=== PATIENT | female | born 1925 | race Caucasian/White ===

== ENCOUNTER 2017-01-13 06:56 | Day surgery (SDC) | payer OTHER ==
[~2017-01-13] VITALS: Ht 157.5 cm; Wt 80.0 kg
[2017-01-13 07:21] VITALS: BP 195/86; PULSE 89; RESP 20; TEMP 98.1; O2SAT 91
[2017-01-13 08:17] LABS: BASOPHIL # 0.1 TH/MM3 (0-0.2); BASOPHIL % 1.2 % (0.0-2.0); EOSINOPHIL # 0.4 TH/MM3 (0-0.4); EOSINOPHIL % 3.6 % (0.0-4.0); HEMATOCRIT 38.8 % (35.0-46.0); HEMO FLAGS DIFF FINAL; LYMPH % 37.6 % (9.0-44.0); LYMPHOCYTE # 4.5 TH/MM3 (1.0-4.8); MEAN CELL VOLUME 86.8 FL (80.0-100.0); MEAN CORPUSCULAR HEMOGLOBIN 29.5 PG (27.0-34.0); MONO % 7.5 % (0.0-8.0); NEUT % 50.1 % (16.0-70.0); PLATELET COUNT 222 TH/MM3 (150-450); RED BLOOD COUNT 4.47 MIL/MM3 (4.00-5.30); RED CELL DISTRIBUTION WIDTH 14.2 % (11.6-17.2)
[2017-01-13] MEDS ORDERED: CARV6.25 PO (08:18)
[2017-01-13] MEDS ORDERED: PLAV75TA29 PO (08:18)
[2017-01-13] MEDS ORDERED: ERGO2000 PO (08:18)
[2017-01-13] MEDS ORDERED: NITR1SUB3 SL (08:18)
[2017-01-13] MEDS ORDERED: BUME1TAB PO (08:18)
[2017-01-13] MEDS ORDERED: INSU1INJ5 SQ (08:18)
[2017-01-13] MEDS ORDERED: POTA10CA PO (08:18)
[2017-01-13] MEDS ORDERED: NIFE60TA58 PO (08:18)
[2017-01-13] MEDS ORDERED: METF500T PO (08:18)
[2017-01-13] MEDS ORDERED: OMEP20TA PO (08:18)
[2017-01-13] MEDS ORDERED: ATOR10TA15 PO (08:18)
[2017-01-13] MEDS ORDERED: LISI40TA PO (08:18)
[2017-01-13] MEDS ORDERED: MIRTA15 PO (08:18)
[2017-01-13] MEDS ORDERED: LATA0.002 EACH EYE (08:18)
[2017-01-13] MEDS ORDERED: ISOS60TA PO (08:18)
[2017-01-13] MEDS ORDERED: ASPI-147 PO (08:18)
[2017-01-13 08:27] LABS: PROTHROMBIN TIME - PATIENT 10.9 SEC (9.8-11.6)
[2017-01-13 08:28] LABS: APTT (PATIENT) 23.3 SEC (24.3-30.1)
[2017-01-13] MEDS ORDERED: LACTATED RINGER'S 1000 ML IV SCH (08:30)
[2017-01-13] MEDS ORDERED: SODIUM CHLORID 0.9% 500 ML IV SCH (08:30)
[2017-01-13] MEDS ORDERED: INSULIN HUMAN REGULAR 1,000 UNITS/10 ML VIAL SQ PRN (08:30)
[2017-01-13] MEDS ORDERED: ceFAZolin 2 GM PREMIX 50 ML IV SCH (08:30)
[2017-01-13] MEDS ORDERED: METOPROLOL TARTRATE 25 MG TAB PO PRN (08:30)
[2017-01-13] MEDS ORDERED: SODIUM CHLOR 0.9% 1000 ML INJ 1,000 ML IV SCH (08:30)
--- NOTE | 2017-01-13 11:53 | RADRPT ---
EXAM DATE/TIME: 01/13/2017 08:21 [place] COMPARISON : No previous studies available for comparison. INDICATIONS : The patient presented for T12 kyphoplasty. HISTORY OF PRESENT ILLNESS: The patient was accompanied by her family. The patient reportedly fell in August of 2016 and develop ed a short time later mid back pain. Per the patient's report the pain has improved considerably sinc e its initial presentation and as shown the most significant improvement in the last week. She does n ot take any narcotic for pain relief and is simply taking [id number] nonsteroidals. She denies any lifestyle limitation. PHYSICAL EXAMINATION: General: The patient is resting comfortably in no acute distress. Musculoskeletal: Palpation of the spinous processes throughout the thoracic and lumbar spine elicits only mild tendern ess at the thoracolumbar junction. IMAGING STUDIES: MRI of the spine was reviewed. ASSESSMENT: The patient is showing improvement with medical management. I had a long discussion with the patient and her family. We discussed the procedure including its risks and benefits. The decision was made to forego cement augmentation at this point. PLAN: Continue medical management. If symptoms return consider cement augmentation at that time. TIME SPENT: <20 minutes Shashi Melton Jr., MD on January 13, 2017 at 11:43 Board Certified Radiologist. This report was verified electronically.
--- NOTE | 2017-01-13 14:52 | EKG ---
Date Performed: 01/13/2017 Time Performed: 07:32:37 PTAGE: 89 years EKG: Sinus rhythm WITH FIRST DEGREE AV BLOCK LEFT BUNDLE BRANCH BLOCK ABNORMAL ECG NO PREVIOUS TRACING DOCTOR: Flori Wilkins Interpretating Date/Time 01/13/2017 14:48:54
== END 2017-01-13 10:00 | disposition home or self-care (01) ==
LOC: HROP 06:56 → HRIP 06:57 → HROP 10:00
PROVIDERS: ATTEND Internal Medicine
DX: S22.009A Unspecified fracture of unspecified thoracic vertebra, initial encounter for closed fracture (principal); M54.5 Low back pain; M19.90 Unspecified osteoarthritis, unspecified site; M48.00 Spinal stenosis, site unspecified; I10 Essential (primary) hypertension
CPT/HCPCS: 85025; 85610; 85730; 93005